=== PATIENT | female | born 1940 | race Caucasian/White ===

== ENCOUNTER 2017-11-13 10:05 | Inpatient (IN) | payer MEDICARE, OTHER ==
[2017-11-13] MEDS ORDERED: HYDROcodone/APAP 5-325MG 1 EACH TAB PO STA ×2 (10:30→11:46)
--- NOTE | 2017-11-13 10:38 | ED ---
Fall HPI - General Chief Complaint: Fall Stated Complaint: fall, ankle injury Time Seen by Provider: 11/13/17 10:17 Source: patient Mode of arrival: EMS - History of Present Illness Initial Comments: 77-year-old female presenting after a mechanical fall at home. Patient states she has been drinking a lot of milk lately causing her to use the bathroom frequently. States she got up and was not able to make it to the bathroom in time, slipped in her own urine and feces, and landed on her bottom with her knees touching and ankles out to the side. She had severe bilateral ankle pain at this time causing her to be unable to ambulate. She denies any head or neck injury. Patient is not on blood thinners. She denies any back pain or presyncopal symptoms. - Related Data Home Medications Medication Instructions Recorded Confirmed No Known Home Medications 12/31/13 11/13/17 Allergies Allergy/AdvReac Type Severity Reaction Status Date / Time No Known Allergies Allergy Verified 11/13/17 14:25 Review of Systems ROS Statement: Those systems with pertinent positive or pertinent negative responses have been documented in the HPI. Review of Systems Constitutional: Denies fever, chills Eyes: Denies change in vision, Denies pain Ears, nose, mouth, throat: Denies headaches, Denies sore throat Cardiovascular: Denies chest pain. Denies palpitations Respiratory: Denies shortness of breath, Denies cough Gastrointestinal: Denies abdominal pain. Denies nausea, vomiting, diarrhea. Genitourinary: Denies hematuria, Denies infections Musculoskeletal: Positive bilateral ankle pain and right ankle deformity. Integumentary: Denies rash Neurological: Denies headache, focal weakness, focal numbness Psychiatric: Denies anxiety, Denies depression Hematologic/Lymphatic: Denies easy bleeding or bruising ROS Other: All systems not noted in ROS Statement are negative. Past Medical History Additional Past Medical History / Comment(s): MACULAR DEGENERATION History of Any Multi-Drug Resistant Organisms: None Reported Additional Past Surgical History / Comment(s): CATARACT, Past Psychological History: No Psychological Hx Reported Smoking Status: Never smoker Past Alcohol Use History: None Reported Past Drug Use History: None Reported General Exam - General Exam Comments Initial Comments: General: Awake, alert, No acute Distress HENT: Normocephalic. Atraumatic Eyes: PERRL. EOMI. No scleral icterus. No injected conjunctiva Neck: Full ROM Chest/Lungs: Clear to auscultation bilaterally. No wheezing, rhonchi, or rales Cardiac: Regular rate, rhythm. No murmurs or rubs. 2+ DP pulses bilaterally Abdomen/GI: [Soft, nontender, nondistended. No rebound, guarding, or rigidity. Musculoskeletal: No midline cervical, thoracic, lumbar spine tenderness. No bilateral hip tenderness. Full range of motion of bilateral hips and knees without redness swelling or deformity. Erythematous and swollen right lateral malleolus with tenderness to palpation and limited range of motion in all planes. Left lateral malleoli ankle tenderness without erythema or deformity. L3 through S1 sensation intact bilaterally. Skin: Warm, dry, intact Neurologic: A/Ox3, no weakness, no sensory deficit, no abdnormal gait, no coordination deficit Limitations: no limitations Course Vital Signs 11/13/17 11/13/17 11/13/17 10:07 13:13 14:12 Temperature 98.1 F 99.4 F Pulse Rate 82 90 67 Respiratory 18 18 18 Rate Blood Pressure 184/81 136/32 112/64 O2 Sat by Pulse 98 94 L 93 L Oximetry Medical Decision Making - Medical Decision Making 77-year-old female presenting after mechanical fall. Initial exam the patient is awake, alert, no acute distress. VSS. Patient denies hitting her head or her neck. Nexus criteria negative. Patient does have some erythema and splint to the right ankle however at this time is not a large distracting injury. She was cleared from her c-collar. The patient is awake alert and denies any presyncopal symptoms. History consistent with a mechanical fall. She denies any history of ladder or bowel incontinence and attributes what happened this morning to the amount of milk she has been ingesting. Patient's family at bedside and states she is healthy and only sees a doctor one sick and is currently not taking any home medications. The patient is neurologically intact without history of head or neck trauma. No indication for CT imaging at this time. Patient found to have a mildly displaced distal fibula fracture. She is neurovascularly intact. She was splinted and remained neurovascularly intact. Patient has history of balance issues at home, is nearly blind from macular degeneration, is unable to ambulate with crutches or with a walker safely at home. Family at bedsides states they can not stay with her long-term to assist her. Patient is a fall risk. Her laboratory workup reveals a mild leukocytosis but her UA is negative, she has no cough to warrant CXR, and her abdomen is soft and nontender. No history of recent abx use to suggest her frequent stools are secondary to Cdiff. I spoke with Dr. Simmons who is agreeable to admission for inability to ambulate and PT/OT eval. - Lab Data Result diagrams: 11/13/17 12:51 11/13/17 12:51 Lab Results 11/13/17 11/13/17 11/13/17 Range/Units 12:51 12:51 12:51 WBC 12.5 H (3.8-10.6) k/uL RBC 4.69 (3.80-5.40) m/uL Hgb 13.8 (11.4-16.0) gm/dL Hct 42.3 (34.0-46.0) % MCV 90.2 (80.0-100.0) fL MCH 29.4 (25.0-35.0) pg MCHC 32.6 (31.0-37.0) g/dL RDW 13.2 (11.5-15.5) % Plt Count 213 (150-450) k/uL Neutrophils % 86 % Lymphocytes % 8 % Monocytes % 5 % Eosinophils % 0 % Basophils % 0 % Neutrophils # 10.7 H (1.3-7.7) k/uL Lymphocytes # 1.0 (1.0-4.8) k/uL Monocytes # 0.6 (0-1.0) k/uL Eosinophils # 0.1 (0-0.7) k/uL Basophils # 0.0 (0-0.2) k/uL Sodium 141 (137-145) mmol/L Potassium 4.6 (3.5-5.1) mmol/L Chloride 107 (98-107) mmol/L Carbon Dioxide 26 (22-30) mmol/L Anion Gap 8 mmol/L BUN 20 H (7-17) mg/dL Creatinine 0.64 (0.52-1.04) mg/dL Est GFR (CKD-EPI)AfAm >90 (>60 ml/min/1.73 sqM) Est GFR (CKD-EPI)NonAf 88 (>60 ml/min/1.73 sqM) Glucose 109 H (74-99) mg/dL Calcium 9.2 (8.4-10.2) mg/dL Urine Color Light Yellow Urine Appearance Clear (Clear) Urine pH 5.0 (5.0-8.0) Ur Specific [place] 1.009 (1.001-1.035) Urine Protein Negative (Negative) Urine Glucose (UA) Negative (Negative) Urine Ketones Negative (Negative) Urine Blood Negative (Negative) Urine Nitrite Negative (Negative) Urine Bilirubin Negative (Negative) Urine Urobilinogen <2.0 (<2.0) mg/dL Ur Leukocyte Esterase Negative (Negative) Disposition Clinical Impression: Fracture of distal fibula, Unable to ambulate, Risk for falls, Fall Disposition: ADMITTED IP TO THIS [facility] Condition: Good Decision Date: 11/13/17 Decision Time: 13:45
--- NOTE | 2017-11-13 11:26 | XR ---
EXAMINATION TYPE: XR Hip Bilateral and AP pelvis , 5 VIEWS DATE OF EXAM ORDERED: 11/13/2017 HISTORY: Pain. COMPARISON: None. FINDINGS: There is degenerative change in the lumbar spine. There is evidence of osteitis pubis. Oss eous structures about the pelvis are otherwise unremarkable. There is mild degenerative change of both hips. No fracture or dislocation is seen. IMPRESSION: 1. NO ACUTE OSSEOUS LESION. 2. DEGENERATIVE CHANGE.
--- NOTE | 2017-11-13 11:27 | XR ---
EXAMINATION TYPE: XR ankle complete bilateral , 6 VIEWS DATE OF EXAM ORDERED: 11/13/2017 HISTORY: Pain. COMPARISON: None. FINDINGS: There is a mildly displaced fracture the distal right fibula. No additional fracture is se en. There are bilateral, small plantar calcaneal spurs. IMPRESSION: MILDLY DISPLACED FRACTURE OF THE DISTAL RIGHT FIBULA. CODE A: INITIAL ENCOUNTER FOR CLOSED FRACTURE
[2017-11-13] MEDS ORDERED: IBUPROFEN 600 MG TAB PO STA (11:45)
[2017-11-13 13:28] LABS: Basophils % (A) 0 %; Eosinophils # (A) 0.1 k/uL (0-0.7); Eosinophils % (A) 0 %; HCT 42.3 % (34.0-46.0); HGB 13.8 gm/dL (11.4-16.0); Lymphocytes % (A) 8 %; MCH 29.4 pg (25.0-35.0); MCHC 32.6 g/dL (31.0-37.0); MCV 90.2 fL (80.0-100.0); Mean Platelet Volume 7.7; Monocytes # (A) 0.6 k/uL (0-1.0); Monocytes % (A) 5 %; Neutrophils # (A) 10.7 k/uL (1.3-7.7); Neutrophils % (A) 86 %; Platelet Count 213 k/uL (150-450); RBC 4.69 m/uL (3.80-5.40); RDW 13.2 % (11.5-15.5); WBC 12.5 k/uL (3.8-10.6)
[2017-11-13 13:34] LABS: Appearance,Urine Clear (Clear); Bilirubin,Urine Negative (Negative); Blood,Urine Negative (Negative); Color,Urine Light Yellow; Glucose,Urine (UA) Negative (Negative); Ketones,Urine Negative (Negative); Leukocyte Esterase,Urine Negative (Negative); Nitrite,Urine Negative (Negative); Protein,Urine Negative (Negative); Specific Gravity,Urine 1.009 (1.001-1.035); Urobilinogen,Urine <2.0 mg/dL (<2.0)
[2017-11-13 13:37] LABS: Anion Gap 8 mmol/L; Blood Urea Nitrogen 20 mg/dL (7-17); Calcium 9.2 mg/dL (8.4-10.2); Carbon Dioxide 26 mmol/L (22-30); Chloride 107 mmol/L (98-107); Glucose 109 mg/dL (74-99); Potassium 4.6 mmol/L (3.5-5.1); Sodium 141 mmol/L (137-145)
[2017-11-13] MEDS ORDERED: ACETAMINOPHEN TAB 325 MG TAB PO PRN (13:46)
[2017-11-13] MEDS ORDERED: ONDANSETRON 4 MG/2 ML VIAL IVP PRN (13:46)
[2017-11-13] MEDS ORDERED: NALOXONE 0.4 MG/ML 1 ML VIAL IV PRN (13:46)
[2017-11-13] MEDS ORDERED: IBUPROFEN 400 MG TAB PO PRN (13:46)
[2017-11-13] MEDS ORDERED: MORPHINE SULFATE 4 MG/ML SYRINGE IV PRN (13:46)
[2017-11-13] MEDS ORDERED: traMADol 50 MG TAB PO PRN (13:46)
[2017-11-13 15:36] VITALS: BMI 32.0
[2017-11-13] MEDS ORDERED: ALPRAZolam 0.25 MG TAB PO PRN (20:34)
--- NOTE | 2017-11-13 21:34 | HP ---
HISTORY AND PHYSICAL DATE OF SERVICE: 11/13/2017 CHIEF COMPLAINTS: Fall and as well as ankle pain. HISTORY OF PRESENT ILLNESS: This 77-year-old woman with a past medical history of multiple medical problems, including macular degeneration, history of tubal ligation, cataracts, bilateral blind and also was extremely hard of hearing. The patient being followed by Dr. Fernández in the outpatient setting. The patient apparently was drinking more milk recently which prompted her to go to the bathroom more frequently and the patient apparently slipped and fell and complaining of ankle pain. The patient came to [facility] emergency room and the patient is admitted for further evaluation and treatment. X-ray showed distal right fibular fracture. Patient admitted to the hospital for further evaluation and treatment. There is no history of fever, rigors, no headache, loss of consciousness, seizures. PAST MEDICAL HISTORY: History of disorder, macular degeneration, history of bilateral deafness, and blindness. MEDICATIONS: None. ALLERGIES: None. FAMILY HISTORY: No history of heart disease or strokes in family. SOCIAL HISTORY: No history of smoking. No history of alcohol. REVIEW OF SYSTEMS: ENT mentioned earlier. Cardiovascular: No angina or palpitations. Respiratory : No cough or hemoptysis. GI: No nausea or vomiting. : No dysuria or hematuria. Nervous system: No numbness or weakness. Allergy/Immunology: No asthma or hayfever. Musculoskeletal as mentioned earlier. Hematology/Oncology: No history of anemia. Endocrine: No history of diabetes or hypothyroidism. Constitutional: As mentioned earlier. Dermatology negative. Rheumatology as mentioned. Musculoskeletal as mentioned earlier. Psychiatric is negative. PHYSICAL EXAM: The patient is alert and oriented times three. Pulse 76, blood pressure 112/64 , respiration 18, temperature 99.4, pulse ox 93% on 2 L. HEENT is conjunctivae normal. Oral mucosa moist. Neck is no jugular venous distention. No carotid bruit. No lymph node enlargement. Cardiovascular S1-S2 muffled. No S3, no S4. RESPIRATORY: Breath sounds diminished in the bases. A few scattered rhonchi and no crackles. ABDOMEN: Soft, nontender. No mass palpable. Legs status post right ankle fracture. Nervous system: Higher functions as mentioned earlier. Moves all four extremities. No focal motor or sensory deficits. Lymphatics: No lymph nodes palpable in the neck, axillae or groin. Skin: No ulcer, rash or bleeding. Joints: As mentioned earlier. LAB STUDIES: WBC 5.5, otherwise glucose 109. ASSESSMENT: 1. Fall and right distal fibular fracture. 2. Gait dysfunction. 3. Increased WBC. 4. History of macular degeneration. 5. Bilateral blindness and as well as deafness. 6. Cataract. RECOMMENDATIONS AND DISCUSSION: In this 77-year-old woman who presented with multiple complex medical issues, we will monitor the patient closely. Continue the current medications, management and symptomatic treatment. Otherwise at this time I would recommend symptomatic treatment. DVT prophylaxis. Orthopedic evaluation. Otherwise, pain medications. Resume the home medications. Overall prognosis guarded because of multiple medical problems. Repeat labs will be ordered. Overall prognosis guarded because of multiple complex medical issues and further recommendations to follow. We will await Orthopedic surgery evaluation. I would also recommend PT/OT and as well as Social Work also to evaluate for the home situation as well. The patient might require rehab. CARRINGTON / PANTERA: [id number] / MTDD
[2017-11-13] MEDS: HEPARIN SODIUM,PORCINE 5,000 UNIT/ML 1 ML VIAL SQ SCH (21:42)
[2017-11-14 08:06] LABS: Anion Gap 6 mmol/L; Blood Urea Nitrogen 14 mg/dL (7-17); Calcium 8.9 mg/dL (8.4-10.2); Carbon Dioxide 27 mmol/L (22-30); Chloride 107 mmol/L (98-107); Glucose 108 mg/dL (74-99); Potassium 4.3 mmol/L (3.5-5.1); Sodium 140 mmol/L (137-145)
[2017-11-14] MEDS: HEPARIN SODIUM,PORCINE 5,000 UNIT/ML 1 ML VIAL SQ SCH ×2 (08:09→20:48)
[2017-11-14 08:14] LABS: Basophils % (A) 0 %; Eosinophils # (A) 0.2 k/uL (0-0.7); Eosinophils % (A) 2 %; HCT 45.1 % (34.0-46.0); HGB 14.2 gm/dL (11.4-16.0); Lymphocytes # (A) 1.5 k/uL (1.0-4.8); Lymphocytes % (A) 19 %; MCH 28.7 pg (25.0-35.0); MCHC 31.6 g/dL (31.0-37.0); MCV 90.9 fL (80.0-100.0); Mean Platelet Volume 7.8; Monocytes # (A) 0.4 k/uL (0-1.0); Monocytes % (A) 5 %; Neutrophils # (A) 5.8 k/uL (1.3-7.7); Neutrophils % (A) 73 %; Platelet Count 213 k/uL (150-450); RBC 4.96 m/uL (3.80-5.40); RDW 13.2 % (11.5-15.5)
[2017-11-14] MEDS: MULTIVITAMINS, THERA 1 EACH TAB PO SCH (11:30)
--- NOTE | 2017-11-14 11:58 | XR ---
EXAMINATION TYPE: XR chest 1V DATE OF EXAM: 11/14/2017 COMPARISON: 12/31/2013 HISTORY: 77-year-old female presurgical evaluation TECHNIQUE: Single frontal view of the chest is obtained. FINDINGS: Heart is mildly enlarged. Hazy lower lung densities may reflect trace effusions. Retrocardiac density is also present. Low lung volumes with crowded vascular markings. IMPRESSION: Limited portable view. Left base is underpenetrated and not well assessed. There are also hypoventila tory changes further limiting assessment. Based on this exam, left basilar disease or even mild CHF c annot be excluded. Recommend dedicated high quality PA and lateral views.
[2017-11-14 15:28] LABS: INR 1.1 (<1.2); Prothrombin Time 10.7 sec (9.0-12.0)
--- NOTE | 2017-11-14 15:46 | P.CNOR ---
History of Present Illness - [facility] Consult date: 11/14/17 Consult reason: fracture History of present illness: Patient is a 77-year-old female presented [facility] on 2017 after sustaining a fall at home. She states that she slipped on the floor and fell on her right ankle. Patient was unable to weight-bear, she was brought to [facility]. Upon arrival to the hospital, imaging test were done. Images demonstrated a right lateral malleolus ankle fracture. Patient was admitted to the hospital due to inability to ambulate with assistive devices. She was admitted under internal medicine, orthopedic team was consulted on this patient. Patient was evaluated today at bedside, her family was present. She is resting comfortably. She denies significant pain involving the right ankle. She denies any discomfort in the left lower extremity, bilateral upper extremity, new onset cervical, thoracic or lumbar pain. Review of Systems Constitutional: Reports as per [facility] Past Medical History Past Medical History: Eye Disorder Additional Past Medical History / Comment(s): MACULAR DEGENERATION History of Any Multi-Drug Resistant Organisms: None Reported Past Surgical History: Ear Surgery, Tubal Ligation Additional Past Surgical History / Comment(s): CATARACT, Past Anesthesia/Blood Transfusion Reactions: No Reported Reaction Past Psychological History: No Psychological Hx Reported Smoking Status: Never smoker Past Alcohol Use History: None Reported Past Drug Use History: None Reported Medications and Allergies Home Medications Medication Instructions Recorded Confirmed Type No Known Home Medications 12/31/13 11/13/17 History Allergies Allergy/AdvReac Type Severity Reaction Status Date / Time No Known Allergies Allergy Verified 11/13/17 14:25 Physical Examination Right lower extremity: There is a posterior splint with Matt wrap present on the right lower extremity. No obvious open lesions or sores present throughout the rest extremity. No obvious effusion present over the knee. She is able to wiggle all of her toes minimal difficulty. Her dorsal pedis pulses 2+. Her sensory exam to light touch is intact. Results - Labs Labs: Abnormal Lab Results - Last 24 Hours (Table) 11/14/17 Range/Units 07:31 Glucose 108 H (74-99) mg/dL H & H 11/13/17 11/14/17 Range/Units 12:51 07:31 Hgb 13.8 14.2 (11.4-16.0) gm/dL Hct 42.3 45.1 (34.0-46.0) % Coagulation 11/14/17 Range/Units 07:31 INR 1.1 (<1.2) Result Diagrams: 11/14/17 07:31 11/14/17 07:31 - Diagnostic results Ankle/Foot x-ray: report reviewed, image reviewed Assessment and Plan Plan: Imaging: Multiple views of the right ankle were obtained and reviewed. Images demonstrated a displaced lateral malleolus fracture involving the right ankle. Assessment: 1. Displaced right ankle lateral malleolus fracture 2. Status post fall from standing Plan: I was able to discuss the case, including with physical exam findings imaging studies my attending Dr. Mora. We will like to proceed with surgical fixation , more specifically an open reduction internal fixation procedure. I discussed the procedure, including postoperative care at length with the patient and the family at bedside today. She is in good understanding would like to proceed. Obtained consent Pain control Nonweightbearing right lower extremity nothing by mouth after midnight Medical clearances and recommendations GI and DVT prophylaxis, likely begin aspirin 325 mg twice a day after surgery Further recommendations to follow Time with Patient: Less than 30
[2017-11-14] MEDS ORDERED: IPRATROPIUM-ALBUTEROL 3 ML NEB INHALATION PRN (19:41)
--- NOTE | 2017-11-14 20:26 | PN ---
PROGRESS NOTE DATE OF SERVICE: 11/14/2017 This 77-year-old woman who was admitted with fall and distal fibular fracture is being closely monitored. Orthopedic Surgery has seen the patient and recommending surgical fixation and ORIF. No chest pain. No palpitations. No fever. REVIEW OF SYSTEMS: CARDIOVASCULAR: No angina. RESPIRATORY: No cough. GI: No nausea and diarrhea. : No dysuria. MUSCULOSKELETAL: As mentioned earlier. CURRENT MEDICATIONS: Reviewed and include: 1. Tylenol 650 q.6. 2. Ackerman 5 mg. 3. Xanax. 4. Heparin 5 b.i.d. 5. Motrin 200 mg. 6. Mobic. 7. Narcan. 8. Zofran. 9. Ultram. EXAM: Pulse is 90, blood pressure 130/70, respiration 17, temperature is 99.6, pulse ox 98% 2 L. HEENT: Conjunctivae normal. Oral mucosa moist. Neck is no jugular venous distention. No carotid bruit. No lymph node enlargement. CARDIOVASCULAR: S1, S2 muffled. No S3, no S4. RESPIRATORY: Breath sounds diminished in the bases. No rhonchi, no crackles. ABDOMEN: Soft, nontender. LEGS: Status post right ankle fracture. NERVOUS SYSTEM: No focal deficits. LABS: Chest x-ray done today showed possible atelectasis and infiltrate in the right side. ASSESSMENT: 1. Fall and right-sided distal fibular fracture and right displaced ankle malleolar fracture. 2. Gait dysfunction. 3. Fever, possible mild pneumonia. 4. Increased WBC. 5. History of macular degeneration. 6. Blindness as well as deafness. 7. Cataracts. RECOMMENDATIONS AND DISCUSSION: In this 77-year-old woman who presented with multiple complex medical issues, will monitor the patient closely. Continue the current management and symptomatic treatment. I would recommend a course of antibiotics and also recommend a course of bronchodilators as well as incentive spirometry. DVT prophylaxis. Orthopedic Surgery evaluation. Guarded prognosis because of multiple complex medical issues. Further recommendations to follow. See orders for details. Once again the prognosis guarded. Further recommendations to follow. See orders for details. Will also obtain cultures as well. MMODL / IJN: [id number] /
[2017-11-14] MEDS: PIPERACILLIN-TAZOBACTAM 3.375 GM in DEXTROSE/WATER 1 50ML.BAG IVPB SCH (20:48)
[2017-11-14] MEDS: IPRATROPIUM-ALBUTEROL 3 ML NEB INHALATION SCH (21:49)
--- NOTE | 2017-11-14 21:49 | PN ---
PROGRESS NOTE DATE OF SERVICE: 11/14/2017. ADDENDUM: The patient is medically cleared for surgery. Please refer to previous dictation orders. MMODL / IJN: [id number] /
[2017-11-15] MEDS: PIPERACILLIN-TAZOBACTAM 3.375 GM in DEXTROSE/WATER 1 50ML.BAG IVPB SCH ×3 (03:31→20:47)
[2017-11-15] MEDS: HEPARIN SODIUM,PORCINE 5,000 UNIT/ML 1 ML VIAL SQ SCH ×2 (07:25→20:47)
[2017-11-15] MEDS: IPRATROPIUM-ALBUTEROL 3 ML NEB INHALATION SCH ×3 (08:06→20:34)
[2017-11-15 09:49] LABS: Anion Gap 7 mmol/L; Blood Urea Nitrogen 14 mg/dL (7-17); Calcium 8.7 mg/dL (8.4-10.2); Carbon Dioxide 27 mmol/L (22-30); Chloride 107 mmol/L (98-107); Glucose 105 mg/dL (74-99); Potassium 4.2 mmol/L (3.5-5.1); Sodium 141 mmol/L (137-145)
[2017-11-15 11:04] LABS: Basophils % (A) 0 %; Eosinophils # (A) 0.3 k/uL (0-0.7); Eosinophils % (A) 4 %; HCT 41.6 % (34.0-46.0); HGB 13.3 gm/dL (11.4-16.0); Lymphocytes # (A) 1.2 k/uL (1.0-4.8); Lymphocytes % (A) 18 %; MCH 29.3 pg (25.0-35.0); MCV 91.6 fL (80.0-100.0); Mean Platelet Volume 7.6; Monocytes # (A) 0.4 k/uL (0-1.0); Monocytes % (A) 6 %; Neutrophils # (A) 4.9 k/uL (1.3-7.7); Neutrophils % (A) 70 %; Platelet Count 196 k/uL (150-450); RBC 4.54 m/uL (3.80-5.40); RDW 13.5 % (11.5-15.5); WBC 6.9 k/uL (3.8-10.6)
[2017-11-15] MEDS: MULTIVITAMINS, THERA 1 EACH TAB PO SCH (11:21)
[2017-11-15] MEDS ORDERED: hydrALAZINE HCL 20 MG/ML 1 ML VIAL IVP PRN (13:10)
--- NOTE | 2017-11-15 15:20 | PN ---
PROGRESS NOTE DATE OF SERVICE: 11/15/2017 This 77-year-old woman was admitted with right malleolar fracture slated to have surgery today, surgery. No chest pain. No palpitations. No fever. EXAM: Pulse is 88, blood pressure 160/85, respiration 18, temperature 97 degrees, pulse ox 94% on room air. HEENT: Conjunctivae normal. NECK: No jugular venous distention. CARDIOVASCULAR: S1, S2. RESPIRATORY: Breath sounds diminished in the bases. No rhonchi, no crackles. ABDOMEN: Soft, nontender. LEGS: No edema, no swelling. NERVOUS SYSTEM: Higher functions as mentioned earlier, moves all 4 limbs. No focal motor deficits. Otherwise, legs, status post right ankle fracture. LABS: At this time shows a CBC within normal limits. Glucose is 105. ASSESSMENT: 1. Fall and right-sided distal fibular fracture with right displaced ankle malleolar fracture. 2. Gait dysfunction. 3. Fever possible mild pneumonia. 4. Increased WBC. 5. History of macular degeneration. 6. Blindness as well as deafness. 7. Cataracts. RECOMMENDATIONS AND DISCUSSION: I recommend to continue current management and symptomatic treatment. Otherwise at this time I would recommend follow closely with Orthopedic Surgery. Otherwise the white count is normal. Guarded prognosis. Further recommendations to follow. MMODL / IJN: [id number] / MTDD
[2017-11-15] MEDS ORDERED: LACTATED RINGERS 1,000 ML IV ONE (16:04)
[2017-11-15] MEDS ORDERED: DEXAMETHASONE SOD PHOSPHATE 4 MG/ML 1 ML VIAL IVP ONE (16:13)
[2017-11-15] MEDS ORDERED: LIDOCAINE 1% INJ 10MG/ML (20 ML MDV) ONE (16:45)
[2017-11-15] MEDS ORDERED: GLYCOPYRROLATE 0.2 MG/ML 2 ML VIAL ONE (16:45)
[2017-11-15] MEDS ORDERED: MIDAZOLAM 2 MG/2 ML VIAL ONE (16:45)
[2017-11-15] MEDS ORDERED: fentaNYL (PF) 50 MCG/ML 2 ML AMP ONE (16:45)
[2017-11-15] MEDS ORDERED: ROCURONIUM BROMIDE 10 MG/ML 10 ML VIAL IV ONE (16:45)
[2017-11-15] MEDS ORDERED: PROPOFOL 10 MG/ML 20 ML VIAL IV ONE (16:45)
[2017-11-15] MEDS ORDERED: ePHEDrine SULFATE/0.9% NACL/PF 50 MG/5 ML SYRINGE IV ONE (16:45)
[2017-11-15] MEDS ORDERED: NEOSTIGMINE 1 MG/ML 10 ML VIAL ONE (16:45)
[2017-11-15] MEDS ORDERED: ceFAZolin 1,000 MG VIAL IVPB ONE ×2 (17:10→17:20)
[2017-11-15] MEDS ORDERED: ceFAZolin 1,000 MG in SODIUM CHLORIDE 0.9% 1,000 ML IRRIGATION ONE (17:26)
[2017-11-15] MEDS ORDERED: HYDROcodone/APAP 5-325MG 1 EACH TAB PO PRN (18:01)
--- NOTE | 2017-11-15 18:03 | P.OP ---
Date of Procedure: 11/15/17 Preoperative Diagnosis: Displaced right lateral malleolar ankle fracture Postoperative Diagnosis: Same Procedure(s) Performed: Open reduction and internal fixation right lateral malleolar ankle fracture Implants: Lara 6-hole one third tubular plate Anesthesia: JUNIE Surgeon: Yury Mora Finish Mixer #1: Hasmukh Julio Estimated Blood Loss (ml): 5 Pathology: none sent Condition: stable Disposition: PACU Indications for Procedure: The patient's a 77-year-old female who presents after falling injuring her right ankle. Upon evaluation she was noted of evidence of a displaced right lateral ankle fracture. A discussion of the risks and benefits of operative intervention versus conservative measures was made with the patient and her family. She opted to proceed with surgery. Operative risks to include infection, neurovascular injury, development of blood clots, possible development of nonunion/malunion, and possible need for subsequent procedures was discussed. Informed consent was obtained. Operative Findings: As below Description of Procedure: The patient was brought to the operating room, and after induction of general anesthesia the right lower extremity was prepped and draped in normal fashion. The tourniquet was inflated to 270 mmHg. An 8 cm incision was then made along the posterior lateral subcutaneous border of the fibula. The skin was incised sharply. Subcu change tissues were divided bluntly. The fracture site was identified and cleaned of clot and debris. Fracture was then reduced with a reduction clamp. A lag screw was placed posterior to anterior. This is done with the aid of fluoroscopy. A lateral neutralization plate was placed utilizing a 6-hole one third tubular plate that was appropriately molded. 3.5 mm cortical screws the appropriate length were placed proximally and 4.0 mm cancellus screws in the distal 2 screw holes. Final fluoroscopic views to include AP mortise and lateral view showed adequate reduction of the fracture and placement of the implant. The mortise appeared to be intact. The syndesmosis was deemed to be stable. The wound is irrigated with normal saline. The subcu change tissues were reapproximated with interrupted 2-0 Vicryl sutures. The skin was reapproximated with 3-0 subcuticular Prolene suture. Steri-Strips were applied. A sterile dressing was applied. Tourniquet was deflated less than 45 minutes total tourniquet time. A bulky splint was placed. The patient was awoken from general anesthesia and transferred to recovery room in fair condition. Blood loss estimated 5 mL. No complications were incurred. Sponge and needle counts were correct at the end of the case.
[2017-11-15] MEDS ORDERED: LABETALOL 5 MG/ML VIAL MDV IVP ONE (18:30)
[2017-11-15] MEDS ORDERED: HYDROmorphone 1 MG/ML 1 ML SYRINGE IVP ONE ×2 (18:45→18:54)
[2017-11-15] MEDS ORDERED: MORPHINE ORAL SOLN 10 MG/5 ML CUP PO PRN (20:44)
[2017-11-16] MEDS: PIPERACILLIN-TAZOBACTAM 3.375 GM in DEXTROSE/WATER 1 50ML.BAG IVPB SCH ×3 (04:27→20:30)
[2017-11-16] MEDS: HEPARIN SODIUM,PORCINE 5,000 UNIT/ML 1 ML VIAL SQ SCH ×2 (08:03→21:43)
--- NOTE | 2017-11-16 08:08 | FL ---
Fluoroscopy INDICATION: Pain FINDINGS: Fluoroscopy time: 16 seconds. Images obtained: 3. IMPRESSIONS: 1. Documentation of fluoroscopy.
[2017-11-16] MEDS: IPRATROPIUM-ALBUTEROL 3 ML NEB INHALATION SCH ×3 (08:22→19:55)
[2017-11-16 09:37] LABS: Basophils % (A) 0 %; Eosinophils % (A) 0 %; HCT 45.2 % (34.0-46.0); HGB 13.8 gm/dL (11.4-16.0); Lymphocytes % (A) 7 %; MCH 28.1 pg (25.0-35.0); MCHC 30.5 g/dL (31.0-37.0); MCV 92.2 fL (80.0-100.0); Monocytes # (A) 0.3 k/uL (0-1.0); Monocytes % (A) 2 %; Neutrophils # (A) 12.8 k/uL (1.3-7.7); Neutrophils % (A) 90 %; Platelet Count 260 k/uL (150-450); RDW 13.3 % (11.5-15.5); WBC 14.2 k/uL (3.8-10.6)
[2017-11-16 10:00] LABS: Anion Gap 11 mmol/L; Blood Urea Nitrogen 16 mg/dL (7-17); Calcium 9.3 mg/dL (8.4-10.2); Carbon Dioxide 24 mmol/L (22-30); Chloride 106 mmol/L (98-107); Glucose 185 mg/dL (74-99); Potassium 4.6 mmol/L (3.5-5.1); Sodium 141 mmol/L (137-145)
[2017-11-16] MEDS: MULTIVITAMINS, THERA 1 EACH TAB PO SCH (11:11)
--- NOTE | 2017-11-16 11:22 | XR ---
EXAMINATION TYPE: XR chest 1V portable DATE OF EXAM: 11/16/2017 COMPARISON: 11/14/2017 INDICATION: Pneumonia TECHNIQUE: Single frontal view of the chest is obtained. FINDINGS: The heart size is enlarged. The pulmonary vasculature is normal. The lungs are clear. IMPRESSION: 1. No focal consolidation identified.
[2017-11-16] MEDS: HYDROcodone/APAP 5-325MG 1 EACH TAB PO PRN (12:02)
--- NOTE | 2017-11-16 12:24 | P.PN ---
Subjective Progress Note Date: 11/16/17 Principal diagnosis: Status post ORIF right lateral malleolus fracture Patient seen today resting in her hospital bed, she appears comfortable. Pain is controlled at this time. She denies any chest pain or shortness of breath. Objective - Vital Signs Vital signs: Vital Signs Temp 98.3 F 11/16/17 06:35 Pulse 92 11/16/17 08:33 Resp 16 11/16/17 06:35 BP 134/67 11/16/17 06:35 Pulse Ox 92 L 11/16/17 06:35 Intake & Output 11/15/17 11/16/17 11/16/17 18:59 06:59 18:59 Intake Total 701 Output Total 5 Balance 696 Intake: IV 701 Output: Estimated Blood Loss 5 Other: Voiding Method Incontinent # Voids 1 2 # Bowel Movements 0 - Exam Right lower extremity: Postop cast is in good position and condition. She is able to wiggle the toes and little difficulty. A cap refills less than 3 seconds. - Labs CBC & Chem 7: 11/16/17 08:50 11/16/17 08:50 Labs: Abnormal Lab Results - Last 24 Hours (Table) 11/16/17 11/16/17 Range/Units 08:50 08:50 WBC 14.2 H (3.8-10.6) k/uL MCHC 30.5 L (31.0-37.0) g/dL Neutrophils # 12.8 H (1.3-7.7) k/uL Glucose 185 H (74-99) mg/dL Microbiology - Last 24 Hours (Table) 11/14/17 20:14 Blood Culture - Preliminary Blood No Growth after 24 hours Assessment and Plan Plan: Assessment: Postoperative day 1 status post ORIF right ankle lateral malleolus fracture Plan: Pain control, continue supportive oral medication Nonweightbearing right lower extremity, utilizes walker or crutches GI and DVT prophylaxis Medical recommendations Discharge planning: Patient is cleared for discharge to rehab, this will likely happened on 11/17/2017 Time with Patient: Less than 30
--- NOTE | 2017-11-16 14:26 | PN ---
PROGRESS NOTE DATE OF SERVICE: 11/16/2017 This 77-year-old woman was admitted after fracture of the right ankle, underwent ORIF of the right lateral malleolar ankle fracture. No chest pain. No palpitations. No fever. ECF rehab is being contemplated. PHYSICAL EXAM: On exam, alert and oriented x2. The pulse is 98, blood pressure 134/60, respirations 16, temperature 98.2, pulse ox 98%. HEENT: Hard of hearing and also blind also. CARDIOVASCULAR: S1, S2. RESPIRATORY: Breath sounds diminished in the bases. No rhonchi no crackles. ABDOMEN: Soft, nontender. LEGS: Status post ankle ORIF on the right. NERVOUS SYSTEM: No focal deficit. LABS: WBC 14.2. Chest x-ray repeated shows no focal consolidation. ASSESSMENT: 1. Right lateral malleolar ankle fracture status post open reduction and internal fixation. 2. Fall and gait dysfunction. 3. Fever, possible mild pneumonia, improving. 4. Increased WBC. 5. History of macular degeneration. 6. Blindness as well as deafness. 7. Cataracts. RECOMMENDATIONS AND DISCUSSION: I recommend to continue current medications, continue to monitor. Symptomatic treatment. Otherwise at this time, will continue the antibiotics and increase ambulation. PT, OT evaluation. Follow with Orthopedic Surgery. Once orthopedics cleared the patient might be a candidate for rehab at this time. Prognosis guarded. Further recommendations to follow. [place] / TOMN: [id number] /
[2017-11-17] MEDS ORDERED: ALPRAZolam 0.25 MG TAB ONE
[2017-11-17] MEDS: IPRATROPIUM-ALBUTEROL 3 ML NEB INHALATION SCH ×2 (07:39→13:30)
[2017-11-17 07:58] LABS: Basophils % (A) 0 %; Eosinophils # (A) 0.3 k/uL (0-0.7); Eosinophils % (A) 3 %; HCT 38.6 % (34.0-46.0); HGB 12.3 gm/dL (11.4-16.0); Lymphocytes # (A) 1.6 k/uL (1.0-4.8); Lymphocytes % (A) 20 %; MCH 29.3 pg (25.0-35.0); MCHC 31.8 g/dL (31.0-37.0); Mean Platelet Volume 7.1; Monocytes # (A) 0.4 k/uL (0-1.0); Monocytes % (A) 5 %; Neutrophils # (A) 5.8 k/uL (1.3-7.7); Neutrophils % (A) 71 %; Platelet Count 211 k/uL (150-450); RDW 13.6 % (11.5-15.5); WBC 8.3 k/uL (3.8-10.6)
[2017-11-17] MEDS: HEPARIN SODIUM,PORCINE 5,000 UNIT/ML 1 ML VIAL SQ SCH (08:00)
[2017-11-17] MEDS: PIPERACILLIN-TAZOBACTAM 3.375 GM in DEXTROSE/WATER 1 50ML.BAG IVPB SCH ×2 (08:00→10:42)
[2017-11-17 09:25] LABS: Calcium 8.6 mg/dL (8.4-10.2); Potassium 4.5 mmol/L (3.5-5.1)
[2017-11-17] MEDS: HYDROcodone/APAP 5-325MG 1 EACH TAB PO PRN (10:41)
[2017-11-17] MEDS: MULTIVITAMINS, THERA 1 EACH TAB PO SCH (10:52)
--- NOTE | 2017-11-17 12:50 | P.PN ---
Subjective Progress Note Date: 11/17/17 Principal diagnosis: Status post ORIF right lateral malleolus fracture Patient seen today sleeping in her bed. She had an episode last night, she became confused and tried to get out of bed. She did have a fall. Objective - Vital Signs Vital signs: Vital Signs Temp 98.3 F 11/17/17 07:30 Pulse 88 11/17/17 07:53 Resp 16 11/17/17 07:30 BP 116/62 11/17/17 07:30 Pulse Ox 90 L 11/17/17 07:42 Intake & Output 11/16/17 11/17/17 11/17/17 18:59 06:59 18:59 Other: Voiding Method Incontinent Incontinent # Voids 2 2 2 - Exam Right lower extremity: Postop cast is in good position and condition. She is able to wiggle the toes and little difficulty. A cap refills less than 3 seconds. - Labs CBC & Chem 7: 11/17/17 07:31 11/17/17 07:31 Labs: Abnormal Lab Results - Last 24 Hours (Table) 11/17/17 Range/Units 07:31 BUN 19 H (7-17) mg/dL Microbiology - Last 24 Hours (Table) 11/14/17 20:14 Blood Culture - Preliminary Blood No Growth after 48 hours Assessment and Plan Plan: Assessment: Postoperative day #2 status post ORIF right ankle lateral malleolus fracture Plan: Pain control, hold narcotics Nonweightbearing right lower extremity, utilizes walker or crutches GI and DVT prophylaxis Medical recommendations PT evaluation Discharge planning: Recommend additional stay tonight, hopeful discharge to rehab tomorrow Time with Patient: Less than 30
--- NOTE | 2017-11-17 15:06 | XR ---
EXAMINATION TYPE: XR ankle complete RT DATE OF EXAM: 11/17/2017 COMPARISON: NONE HISTORY: Pain TECHNIQUE: Frontal, lateral images of the right ankle are obtained. COMPARISON: None. FINDINGS: Plate fixation of the distal fibula with plate and screws being intact. There is no acute fracture/dislocation evident. The joint spaces appear within normal limits. Mild soft tissue swellin g noted. IMPRESSION: There is no acute fracture or dislocation seen.
--- NOTE | 2017-11-17 15:32 | P.DS ---
Providers Date of admission: 11/14/17 11:14 Attending physician: Yuri Simmons MD Consults: 11/13/17 13:52 Consult Physician Routine Consulting Provider: Yury Mora Consult Reason/Comments: distal fibula fracture Do you want consulting provider notified?: Yes Primary care physician: Pradeep Dempsey [facility] Course: Final diagnosis 1. Right lateral malleolus ankle fracture status post ORIF Fall and gait dysfunction Fever possibly mild pneumonia improving Increased WBC History macular degeneration Blindness as well as deafness. Cataracts History of present illness this 77-year-old woman with a past history multiple medical problems admitted with a right lateral ankle fracture. Orthopedics evaluated the patient. Patient underwent ORIF. Patient improved significantly. Patient be discharged in a stable condition with guarded prognosis [facility] and Dr. Rodriguez at this time. Total time taken 35 minutes. On exam vitals are stable. Cardio S1 and S2 normal. Respirator system. Clear to auscultation. Abdomen soft nontender. Right ankle status post ORIF Patient Condition at Discharge: Good Plan - Discharge Summary New Discharge Prescriptions: New Acetaminophen Tab [Tylenol] 650 mg PO Q6HR PRN tab PRN Reason: Mild Pain Or Fever > 100.5 Amoxic-Pot Clav 875-125Mg [Augmentin 875-125] 1 tab PO Q12HR #8 tablet Heparin Sodium,Porcine [Heparin Sodium] 5,000 unit SQ Q12HR vial Ibuprofen [Motrin] 400 mg PO Q6HR PRN tab PRN Reason: Mild Pain Or Fever > 100.5 Ipratropium-Albuterol Nebulize [Duoneb 0.5 mg-3 mg/3 ml Soln] 3 ml INHALATION RT-TID PRN ampul.neb PRN Reason: Shortness Of Breath Or Wheezing Multivitamins, Thera [Multivitamin (formulary)] 1 each PO DAILY@1200 tab Pantoprazole Sodium [Protonix] 40 mg PO DAILY #30 tablet.dr Discharge Medication List Acetaminophen Tab [Tylenol] 650 mg PO Q6HR PRN tab 11/17/17 [Rx] Amoxic-Pot Clav 875-125Mg [Augmentin 875-125] 1 tab PO Q12HR #8 tablet 11/17/17 [Rx] Heparin Sodium,Porcine [Heparin Sodium] 5,000 unit SQ Q12HR vial 11/17/17 [Rx] Ibuprofen [Motrin] 400 mg PO Q6HR PRN tab 11/17/17 [Rx] Ipratropium-Albuterol Nebulize [Duoneb 0.5 mg-3 mg/3 ml Soln] 3 ml INHALATION RT -TID PRN ampul.neb 11/17/17 [Rx] Multivitamins, Thera [Multivitamin (formulary)] 1 each PO DAILY@1200 tab [Rx] Pantoprazole Sodium [Protonix] 40 mg PO DAILY #30 tablet. 11/17/17 [Rx] Follow up Appointment(s)/Referral(s): Binh Fernández MD [Primary Care Provider] - 1-2 days Activity/Diet/Wound Care/Special Instructions: Diet cardiac Activity as tolerated follow-up with the orthopedic surgery is advised Follow-up with Dr. Rodriguez in ECF
[2017-11-17 15:55] VITALS: BP 110/70; PULSE 90; RESP 18; TEMP 98.4
== END 2017-11-17 16:40 | DRG 492 ==
LOC: EC 10:05 → 4MS4W 13:49 → OBSVTOIN 11-14 11:14
PROVIDERS: ADMIT Internal Medicine; ATTEND Internal Medicine
PROC: 0QSJ04Z Reposition Right Fibula with Internal Fixation Device, Open Approach (ICD-10-PCS; principal; 2017-11-15 16:30)
DX: S82.61XA Displaced fracture of lateral malleolus of right fibula, initial encounter for closed fracture (principal); J18.9 Pneumonia, unspecified organism; W01.0XXA Fall on same level from slipping, tripping and stumbling without subsequent striking against object, initial encounter; Y92.009 Unspecified place in unspecified non-institutional (private) residence as the place of occurrence of the external cause; Z98.51 Tubal ligation status; Z91.81 History of falling; D72.829 Elevated white blood cell count, unspecified; H35.30 Unspecified macular degeneration; H91.93 Unspecified hearing loss, bilateral; Z98.42 Cataract extraction status, left eye; Z98.41 Cataract extraction status, right eye
CPT/HCPCS: 36415; 71045; 73521; 80048; 81003; 85025; 85610; 87040; 94640; 94760; 99285

== ENCOUNTER 2018-11-28 00:50 | Emergency (ER) | payer MEDICARE, OTHER ==
[2018-11-28 01:19] VITALS: RESP 20
--- NOTE | 2018-11-28 01:42 | ED ---
General Adult HPI - General Chief complaint: Fall Stated complaint: Fall-knee pain Time Seen by Provider: 11/28/18 01:06 Source: patient, EMS Mode of arrival: EMS Limitations: no limitations - History of Present Illness Initial comments: Dictation was produced using [employer] dictation software. please excuse any grammatical, word or spelling errors. Chief Complaint: 78-year-old female presents with bilateral knee pain after falling out of bed. History of Present Illness: 78-year-old female she actually rolled out of bed while she was sleeping. She states she fell forward. She reports landing on her knees. Patient has similar episode like this in the past for she ended up injuring her ankle. She is brought in by family member was concerned that maybe she had injured her knee significantly. Patient complains of some mild knee pain with movement. She still however ambulatory. Patient has no other complaints. Denies any facial trauma. She is not on any blood thinners. Patient has no other complaints at this time. The ROS documented in this emergency department record has been reviewed and confirmed by me. Those systems with pertinent positive or negative responses have been documented in the HPI. All other systems are other negative and/or noncontributory. PHYSICAL EXAM: General Impression: Alert and oriented x3, not in acute distress HEENT: Normocephalic atraumatic, extra-ocular movements intact, pupils equal and reactive to light bilaterally, mucous membranes moist. Cardiovascular: Heart regular rate and rhythm, S1&S2 audible, no murmurs, rubs or gallops Chest: Lungs clear to auscultation bilaterally, no rhonchi, no wheeze, no rales Abdomen: Bowel sounds present, abdomen soft, non-tender, non-distended, no organomegaly Musculoskeletal: Pulses present and equal in all extremities, no peripheral edema, mild tenderness to palpation at the bilateral anterior knees, mild pain with flexion and extension, slight erythema to bilateral anterior knees. Motor: no focal deficits noted Neurological: CN II-XII grossly intact, no focal motor or sensory deficits noted Skin: Intact with no visualized rashes Psych: Normal affect and mood ED course: 78 yo Female presents with bilateral knee pain. All signs upon arrival are within acceptable limits. Patient is well-appearing at bedside. Rest of physical examination is unremarkable.X-rays are unremarkable. Patient could for discharge. - Related Data Previous Rx's Medication Instructions Recorded Acetaminophen Tab [Tylenol] 650 mg PO Q6HR PRN tab 11/17/17 Amoxic-Pot Clav 875-125Mg 1 tab PO Q12HR #8 tablet 11/17/17 [Augmentin 875-125] Heparin Sodium,Porcine [Heparin 5,000 unit SQ Q12HR vial 11/17/17 Sodium] Ibuprofen [Motrin] 400 mg PO Q6HR PRN tab 11/17/17 Ipratropium-Albuterol Nebulize 3 ml INHALATION RT-TID PRN 11/17/17 [Duoneb 0.5 mg-3 mg/3 ml Soln] ampul.neb Multivitamins, Thera [Multivitamin 1 each PO DAILY@1200 tab 11/17/17 (formulary)] Pantoprazole Sodium [Protonix] 40 mg PO DAILY #30 tablet. 11/17/17 Allergies Allergy/AdvReac Type Severity Reaction Status Date / Time No Known Allergies Allergy Verified 11/13/17 14:25 Review of Systems ROS Statement: Those systems with pertinent positive or pertinent negative responses have been documented in the HPI. ROS Other: All systems not noted in ROS Statement are negative. Past Medical History Past Medical History: Eye Disorder Additional Past Medical History / Comment(s): MACULAR DEGENERATION History of Any Multi-Drug Resistant Organisms: None Reported Past Surgical History: Ear Surgery, Tubal Ligation Additional Past Surgical History / Comment(s): CATARACT, Past Anesthesia/Blood Transfusion Reactions: No Reported Reaction Past Psychological History: No Psychological Hx Reported Smoking Status: Never smoker Past Alcohol Use History: None Reported Past Drug Use History: None Reported General Exam Limitations: no limitations Course Vital Signs 11/28/18 00:55 Temperature 97.9 F Pulse Rate 98 Respiratory 20 Rate Blood Pressure 153/96 O2 Sat by Pulse 97 Oximetry Disposition Clinical Impression: Knee contusion Disposition: HOME SELF-CARE Condition: Good Instructions (If sedation given, give patient instructions): Fall Prevention for Older Adults (ED) Is patient prescribed a controlled substance at d/c from ED?: No Referrals: Yury Mora MD [Primary Care Provider] - 1-2 days Time of Disposition: 02:39
--- NOTE | 2018-11-28 02:18 | XR ---
EXAM: XR Left Knee, 3 views XR Right Knee, 3 views CLINICAL HISTORY: Pain TECHNIQUE: Three views of the bilateral knees. COMPARISON: No relevant prior studies available. FINDINGS: Bones/joints: Unremarkable. No acute fracture. No dislocation. Soft tissues: Unremarkable. IMPRESSION: Normal bilateral knee x-rays.
[2018-11-28 03:08] VITALS: BP 148/89; PULSE 92; TEMP 98.4
== END 2018-11-28 03:08 | disposition home or self-care (01) ==
LOC: EC 00:50
DX: S80.01XA Contusion of right knee, initial encounter (principal); S80.02XA Contusion of left knee, initial encounter; W06.XXXA Fall from bed, initial encounter; Y92.009 Unspecified place in unspecified non-institutional (private) residence as the place of occurrence of the external cause
CPT/HCPCS: 99283

== ENCOUNTER 2021-11-25 11:07 | Emergency (ER) | payer MEDICARE, OTHER ==
[2021-11-25 11:12] VITALS: RESP 18
--- NOTE | 2021-11-25 12:37 | XR ---
EXAMINATION TYPE: XR knee complete LT DATE OF EXAM: 11/25/2021 COMPARISON: 11/28/2018 HISTORY: 81-year-old female pain after falling TECHNIQUE: AP, oblique, and lateral views FINDINGS: There is moderate narrowing of cartilage and joint space within the medial compartment. Degenerative spurring in the medial compartment. No sizable joint effusion. No acute fracture, subluxation, disloc ation. Limited assessment of the quadriceps tendon due to obliquity on the lateral view. IMPRESSION: Moderate medial compartmental osteoarthrosis. Excessive obliquity on the lateral view limits evaluati on of knee joint effusion and the quadriceps tendon. No acute osseous abnormality seen.
--- NOTE | 2021-11-25 13:00 | ED ---
Fall HPI - General Chief Complaint: Fall Stated Complaint: Fall Time Seen by Provider: 11/25/21 11:09 Source: patient, EMS, RN notes reviewed Mode of arrival: EMS Limitations: no limitations - History of Present Illness Initial Comments: 81-year-old female presents emergency Department chief complaint left knee pain. Patient states she lost balance on her left knee. Patient states is very sore. Denies any head injury no loss conscious. Patient evaluation return her left knee pain. Patient denies any paresthesias no other associated complaints - Related Data Previous Rx's Medication Instructions Recorded Acetaminophen Tab [Tylenol] 650 mg PO Q6HR PRN tab 11/17/17 Amoxic-Pot Clav 875-125Mg 1 tab PO Q12HR #8 tablet 11/17/17 [Augmentin 875-125] Heparin Sodium,Porcine [Heparin 5,000 unit SQ Q12HR vial 11/17/17 Sodium] Ibuprofen [Motrin] 400 mg PO Q6HR PRN tab 11/17/17 Ipratropium-Albuterol Nebulize 3 ml INHALATION RT-TID PRN 11/17/17 [Duoneb 0.5 mg-3 mg/3 ml Soln] ampul.neb Multivitamins, Thera [Multivitamin 1 each PO DAILY@1200 tab 11/17/17 (formulary)] Pantoprazole Sodium [Protonix] 40 mg PO DAILY #30 tablet. 11/17/17 Allergies Allergy/AdvReac Type Severity Reaction Status Date / Time No Known Allergies Allergy Verified 11/13/17 14:25 Review of Systems ROS Statement: Those systems with pertinent positive or pertinent negative responses have been documented in the HPI. ROS Other: All systems not noted in ROS Statement are negative. Past Medical History Past Medical History: Eye Disorder Additional Past Medical History / Comment(s): MACULAR DEGENERATION History of Any Multi-Drug Resistant Organisms: None Reported Past Surgical History: Ear Surgery, Tubal Ligation Additional Past Surgical History / Comment(s): CATARACT, Past Anesthesia/Blood Transfusion Reactions: No Reported Reaction Past Psychological History: No Psychological Hx Reported Past Alcohol Use History: None Reported Past Drug Use History: None Reported General Exam Limitations: no limitations General appearance: alert, in no apparent distress Head exam: Present: atraumatic, normocephalic, normal inspection Eye exam: Present: normal appearance, PERRL, EOMI. Absent: scleral icterus, conjunctival injection, periorbital swelling Neck exam: Present: normal inspection, full ROM. Absent: tenderness, meningismus, lymphadenopathy Respiratory exam: Present: normal lung sounds bilaterally. Absent: respiratory distress, wheezes, rales, rhonchi, stridor Cardiovascular Exam: Present: regular rate, normal rhythm, normal heart sounds. Absent: systolic murmur, diastolic murmur, rubs, gallop, clicks Extremities exam: Present: other (Left knee small abrasion, mild swelling, neurovascular intact full range of motion no tenderness proximal or distal.) Neurological exam: Present: alert, reflexes normal. Absent: motor sensory deficit Skin exam: Present: warm, dry, intact, normal color. Absent: rash Course Vital Signs 11/25/21 11:08 Pulse Rate 79 Respiratory 18 Rate Blood Pressure 137/84 O2 Sat by Pulse 92 L Oximetry Medical Decision Making - Medical Decision Making X-ray shows degenerative changes, mild joint effusion patient will be discharged in stable condition return parameters discussed. Disposition Clinical Impression: Fall, Left knee pain Disposition: HOME SELF-CARE Condition: Stable Instructions (If sedation given, give patient instructions): Knee Pain (ED) Additional Instructions: Please return to the Emergency Department if symptoms worsen or any other concerns. Is patient prescribed a controlled substance at d/c from ED?: No Referrals: None,Stated [Primary Care Provider] - 1-2 days Time of Disposition: 13:00
[2021-11-25 13:26] VITALS: BP 140/89; PULSE 77
== END 2021-11-25 13:22 | disposition home or self-care (01) ==
LOC: EC 11:07
DX: M25.562 Pain in left knee (principal); W19.XXXA Unspecified fall, initial encounter
CPT/HCPCS: 99283

== ENCOUNTER 2022-03-07 19:26 | Emergency (ER) | payer MEDICARE, OTHER ==
[2022-03-07 19:38] VITALS: BP 147/77; PULSE 72; RESP 16; TEMP 97.8
[2022-03-07] MEDS ORDERED: HYDROcodone/APAP 5-325MG 1 EACH TAB PO STA (20:07)
[2022-03-07] MEDS ORDERED: predniSONE 50 MG TAB PO STA (20:07)
--- NOTE | 2022-03-07 20:47 | XR ---
EXAMINATION TYPE: XR lumbar spine 2 or 3V DATE OF EXAM: 03/07/2022 COMPARISON: NONE HISTORY: Fall. Pain TECHNIQUE: 3 views FINDINGS: The lumbar vertebrae have normal alignment. Posterior elements are intact. There is narrowi ng of disc spaces throughout the lumbar spine.. There is multilevel vacuum disc. No compression fract ure. Sacroiliac joints are intact IMPRESSION: Multilevel spondylotic changes. No fracture seen.
--- NOTE | 2022-03-07 21:30 | ED ---
General Adult HPI - General Chief complaint: Extremity Problem,Nontraumatic Stated complaint: RT leg pain Time Seen by Provider: 03/07/22 19:58 Source: patient, EMS, RN notes reviewed Mode of arrival: EMS Limitations: no limitations - History of Present Illness Initial comments: 81-year-old female presents to the emergency Department via EMS with complaints of low back pain radiating down her right leg. Describes pain as a burning discomfort. States the pain has been ongoing for the past several days but has worsened today. States she had been taking aspirin but ran out of it. Has not been seen for this complaint and has not been to a doctor in a very long time. States the pain became so severe today that she fell onto her bed. Denies any recent trauma or falls. No loss of bowel or bladder control. No saddle anesthesia. Denies foot drop. - Related Data Previous Rx's Medication Instructions Recorded Acetaminophen Tab [Tylenol] 650 mg PO Q6HR PRN tab 11/17/17 Amoxic-Pot Clav 875-125Mg 1 tab PO Q12HR #8 tablet 11/17/17 [Augmentin 875-125] Heparin Sodium,Porcine [Heparin 5,000 unit SQ Q12HR vial 11/17/17 Sodium] Ibuprofen [Motrin] 400 mg PO Q6HR PRN tab 11/17/17 Ipratropium-Albuterol Nebulize 3 ml INHALATION RT-TID PRN 11/17/17 [Duoneb 0.5 mg-3 mg/3 ml Soln] ampul.neb Multivitamins, Thera [Multivitamin 1 each PO DAILY@1200 tab 11/17/17 (formulary)] Pantoprazole Sodium [Protonix] 40 mg PO DAILY #30 tablet. 11/17/17 Ibuprofen [Motrin] 600 mg PO Q8HR PRN #20 tab 03/07/22 predniSONE 50 mg PO DAILY #5 tab 03/07/22 Allergies Allergy/AdvReac Type Severity Reaction Status Date / Time No Known Allergies Allergy Verified 11/13/17 14:25 Review of Systems ROS Statement: Those systems with pertinent positive or pertinent negative responses have been documented in the HPI. ROS Other: All systems not noted in ROS Statement are negative. Past Medical History Past Medical History: Eye Disorder Additional Past Medical History / Comment(s): MACULAR DEGENERATION History of Any Multi-Drug Resistant Organisms: None Reported Past Surgical History: Ear Surgery, Tubal Ligation Additional Past Surgical History / Comment(s): CATARACT, Past Anesthesia/Blood Transfusion Reactions: No Reported Reaction Past Psychological History: No Psychological Hx Reported Past Alcohol Use History: None Reported Past Drug Use History: None Reported General Exam Limitations: no limitations (Well-developed, well-nourished, poorly kempt female in no acute distress at rest. Patient is hard of hearing and is not wearing her hearing aids.) General appearance: alert, in no apparent distress Neck exam: Present: normal inspection, full ROM. Absent: tenderness, meningismus, lymphadenopathy Respiratory exam: Present: normal lung sounds bilaterally. Absent: respiratory distress, wheezes, rales, rhonchi, stridor Cardiovascular Exam: Present: regular rate, normal rhythm, normal heart sounds. Absent: systolic murmur, diastolic murmur, rubs, gallop, clicks GI/Abdominal exam: Present: soft, normal bowel sounds. Absent: distended, tenderness, guarding, rebound, rigid Back exam: Present: normal inspection. Absent: paraspinal tenderness, vertebral tenderness Expanded Back exam: Negative Straight Leg Raising: Left, Right Neurological exam: Present: alert, oriented X3, CN II-XII intact Psychiatric exam: Present: flat affect Skin exam: Present: warm, dry, intact, normal color Course Vital Signs 03/07/22 19:34 Temperature 97.8 F Pulse Rate 72 Respiratory 16 Rate Blood Pressure 147/77 O2 Sat by Pulse 94 L Oximetry - Reevaluation(s) Reevaluation #1: 03/07/22 21:30 Upon reassessment, patient reports some improvement in level of discomfort. Discussed results of Xray. Encouraged to continue utilizing walker and to obtain medications as prescribed. Medical Decision Making - Medical Decision Making This is a 81-year-old female with a past medical history of macular degeneration who lives at home independently. Presents to the emergency Department with complaints of low back pain radiating down the right leg. Pain is radicular in nature. Straight leg raises are negative. No red flag symptoms. X-ray is unremarkable. Patient was given [place] and Prednisone with some improvement. She is encouraged to establish care with a PCP. Discussed pain control options. Patient will be discharged home. Return parameters were discussed in detail. Patient verbalizes understanding and agrees with this plan. Attending: Chloe. - Radiology Data Radiology results: report reviewed, image reviewed Interpreted by me: Upon review of x-ray, I see no acute findings. There appear to be age related changes. X-ray of the lumbar spine was obtained. Report was reviewed in its entirety. Impression per Dr. Dey is multilevel spondylitic changes. No fracture seen. Disposition Clinical Impression: Lumbar radiculopathy, right Disposition: HOME SELF-CARE Condition: Stable Instructions (If sedation given, give patient instructions): Lumbar Radiculopathy (ED) Additional Instructions: Maintain mobility with frequent ambulation. Utilize walker. Rest as needed. Take Motrin if needed for pain. You are being prescribed Motrin for discomfort and prednisone for anti- inflammatory properties. It is important to follow up with her primary care for recheck. Return to the emergency department with any new, worsening, or concerning symptoms. Prescriptions: Ibuprofen [Motrin] 600 mg PO Q8HR PRN #20 tab PRN Reason: Pain predniSONE 50 mg PO DAILY #5 tab Is patient prescribed a controlled substance at d/c from ED?: No Referrals: None,Stated [Primary Care Provider] - 1-2 days Kendra Obrien MD [STAFF PHYSICIAN] - 1-2 days Time of Disposition: 21:50
[2022-03-07] MEDS ORDERED: IBUPROFEN 600 MG STARTER PACK 4 TAB BTL PO STA (21:47)
== END 2022-03-07 23:37 | disposition home or self-care (01) ==
LOC: EC 19:26
DX: M54.16 Radiculopathy, lumbar region (principal)
CPT/HCPCS: 72100; 99283; J7512

== ENCOUNTER 2022-09-08 12:24 | Emergency (ER) | payer MEDICARE, OTHER ==
[2022-09-08 12:29] LABS: Glucose,Whole Blood 107 mg/dL (70-110)
[2022-09-08 12:35] VITALS: BP 116/78; PULSE 52; RESP 20
[2022-09-08] MEDS ORDERED: ROCURONIUM 10 MG/ML (5 ML VIAL) IV ONE (12:35)
[2022-09-08] MEDS ORDERED: ASPIRIN 300 MG SUPP RECTAL STA (13:26)
[2022-09-08] MEDS ORDERED: EPINEPHrine 4 MG in DEXTROSE 5% IN WATER 250 ML IV ONE ×2 (13:27)
[2022-09-08 13:30] LABS: INR 1.9 (<1.2); Prothrombin Time 18.5 sec (9.0-12.0)
[2022-09-08] MEDS ORDERED: VASOPRESSIN 60 UNIT in SODIUM CHLORIDE 0.9% 150 ML IV SCH (13:30)
[2022-09-08] MEDS ORDERED: DEXTROSE 5% IN WATER 1,000 ML with SODIUM BICARB (1 MEQ/ML) 150 ML IV SCH (13:30)
[2022-09-08 13:32] LABS: HCT 32.1 % (34.0-46.0); HGB 11.5 gm/dL (11.4-16.0); MCH 30.7 pg (25.0-35.0); MCHC 35.9 g/dL (31.0-37.0); Mean Platelet Volume 8.3; RBC 3.75 m/uL (3.80-5.40); WBC 9.9 k/uL (3.8-10.6)
[2022-09-08 13:34] LABS: MCV 85.5 fL (80.0-100.0)
[2022-09-08 13:52] LABS: Platelet Count 73 k/uL (150-450)
[2022-09-08 13:55] LABS: Lymphocytes # (M) 2.08 k/uL (1.0-4.8); Neutrophils # (M) 7.23 k/uL (1.3-7.7); Neutrophils % (M) 73 %; Nucleated Red Blood Cells 0 /100 WBC (0-0); Total Cells Counted 100
[2022-09-08 13:56] LABS: Crenated RBC Present; Poikilocytosis (M) Present
--- NOTE | 2022-09-08 13:57 | ED ---
General Adult HPI - General Chief complaint: Altered Mental Status Stated complaint: Poss stroke Source: EMS Mode of arrival: EMS - History of Present Illness Initial comments: Dictation was produced using [employer] dictation software. please excuse any grammatical, word or spelling errors. Chief Complaint: 82-year-old female brought to the emergency department for unresponsiveness History of Present Illness: Patient is an 82-year-old male presents to emergency department after being found unresponsive. According to EMS provides history of present illness patient was sitting down. Apparently she was having a meal when she became unresponsive. EMS was there to bring a different patient to the emergency department however staff requested that EMS bring the patient to the ER first. According to EMS patient has stable vital signs. She was not responding to any sort of stimuli. Attempt was made to intubate however she did have an intact gag reflex. She did have a normal blood pressure, normal blood sugar and normal heart rate Unable to obtain secondary to mental status - Related Data Home Medications Medication Instructions Recorded Confirmed Donepezil [Aricept] 10 mg PO HS 08/21/22 08/21/22 QUEtiapine FUMARATE [SEROquel] 25 mg PO HS 08/21/22 08/21/22 Previous Rx's Medication Instructions Recorded Cyanocobalamin [Vitamin B-12] 1,000 mcg PO DAILY tab 07/02/22 Famotidine [Pepcid] 20 mg PO DAILY tab 07/02/22 Melatonin 5 mg PO HS tab 07/02/22 Cefuroxime [Ceftin] 250 mg PO BID 3 Days #6 tab 08/23/22 Fluconazole [Diflucan] 100 mg PO DAILY #3 tab 08/27/22 Ipratropium-Albuterol Nebulize 3 ml INHALATION TID #1 each 08/27/22 [Duoneb 0.5 mg-3 mg/3 ml Soln] Lisinopril-Hctz 10-12.5 mg 1 tab PO BID #1 tab 08/27/22 [Zestoretic 10-12.5] Loratadine-Pseudoeph 5-120 mg 1 each PO Q12HR #10 tab 08/27/22 [Claritin-D 12 Hour] guaiFENesin [Mucinex] 600 mg PO QID tab 08/27/22 predniSONE 10 mg PO DAILY #30 tab 08/27/22 Allergies Allergy/AdvReac Type Severity Reaction Status Date / Time No Known Allergies Allergy Verified 09/08/22 14:29 Review of Systems ROS Statement: Those systems with pertinent positive or pertinent negative responses have been documented in the HPI. ROS Other: All systems not noted in ROS Statement are negative. Past Medical History Past Medical History: Dementia, Eye Disorder Additional Past Medical History / Comment(s): MACULAR DEGENERATION History of Any Multi-Drug Resistant Organisms: None Reported Past Surgical History: Section, Ear Surgery, Tubal Ligation Additional Past Surgical History / Comment(s): CATARACT, Past Anesthesia/Blood Transfusion Reactions: No Reported Reaction Past Psychological History: No Psychological Hx Reported Smoking Status: Never smoker Past Alcohol Use History: None Reported Past Drug Use History: None Reported General Exam - General Exam Comments Initial Comments: PHYSICAL EXAM: General Impression: Obtunded, sonorous respirations, ashen HEENT: Normocephalic atraumatic, extra-ocular movements intact, pupils equal and reactive to light bilaterally, dry mucous membranes Cardiovascular: Thready pulse Chest: Sonorous respirations Abdomen: abdomen soft, , non-distended, no organomegaly Musculoskeletal: , no peripheral edema Neurological: Unresponsive to any stimuli Skin: Ashen Course Vital Signs 09/08/22 12:31 Pulse Rate 52 L Respiratory 20 Rate Blood Pressure 116/78 O2 Sat by Pulse 100 Oximetry - Reevaluation(s) Reevaluation #1: 09/08/22 13:48 Patient received intravenous Tuesday #2. Patient had intact vital signs on initial arrival. She was not protecting her airway. Decision was made to intubate patient. She was intubated with rapid sequence intubation. Patient had stable vitals and after several minutes she became pulseless. She had undergone CPR for prolonged period of time. Patient had defibrillation on multiple occasions for some runs of V. fib and unstable ventricular tachycardia. She continually loss of pulse after short periods of return of spontaneous circulation. She was placed on multiple pressors. Second EKG was performed showing large myocardial infarction with diffuse ST segment elevation and reciprocal changes in high lateral leads. Patient was given rectal aspirin. Case was discussed with on-call cardiology, Dr. Valerio. Patient not a good candidate for the recyclable products sorter in his recommendation was rectal aspirin and heparin. Case was discussed with family. Daughter understands the patient was sent to the emergency department after being unresponsive. Daughter states patient does not have any cardiac history. Clinical state was discussed with daughter. Af ter some phone calls with family it was decided by family to cease resuscitation efforts. Time of was at 143 p.m. 09/08/22 13:53 Reevaluation #2: 09/08/22 14:46Case discussed with medical care manager. Case also discussed with Dr. Rodriguez for signing of the certificate. Medical Decision Making - Medical Decision Making Was pt. sent in by a medical professional or institution (, PA, PRINT SHOP HELPER, urgent ca re, hospital, or prison...) When possible be specific @ -assisted Did you speak to anyone other than the patient for history (EMS, parent, family, police, friend...)? What history was obtained from this source @ -History obtained from EMS. Please see history present illness for further detail Did you review nursing and triage notes (agree or disagree)? Why? @ -I reviewed and agree with nursing and triage notes Were old charts reviewed (outside hosp., previous admission, EMS record, old EKG, old radiological studies, urgent care reports/EKG's, prison records)? Report findings @ -Per charting was reviewed. Patient was just discharged from the hospital on August 27. She was admitted to Dr. Talbot service for COPD and hypoxic respiratory failure. Differential Diagnosis (chest pain, altered mental status, abdominal pain women, abdominal pain men, vaginal bleeding, musculoskeletal, weakness, fever, dyspnea, syncope, headache, dizziness, GI bleed, back pain, seizure, CVA, palpatations, mental health)? @ -Differential Altered Mental Status: Hypoglycemia, DKA, hypercapnia, ETOH, overdose, CO poisoning, trauma, myxedema coma, HTN encephalopathy, infection, encephalitis, psychosis, intercranial hemo rrhage, hepatic encephalopathy, meningitis, CVA, this is not meant to be an all- inclusive list EKG interpreted by me (3pts min.). @ -Initial EKG shows A. fib. There is significant artifact in one, 3, aVL and V4 making interpretation difficult however didn't appear to be ST depressions in lateral leads. Repeat EKG performed at [address] segment elevation [place] X-rays interpreted by me (1pt min.). @ -None done CT interpreted by me (1pt min.). @ -None done U/S interpreted by me (1pt. min.). @ -None done What testing was considered but not performed or refused? (CT, X-rays, U/S, labs)? Why? @ -None What meds were considered but not given or refused? Why? @ -None Did you discuss the management of the patient with other professionals (prof grande i.e. , PA, PR[employer] SH[employer] HELPER, lab, RT, psych nurse, elementary school social worker, contract runner, teacher, learning officer, shoe caser)? Give summary @ -Discussed with cardiology as mentioned in clinical course Was smoking cessation discussed for >3mins.? @ -No Was critical care preformed (if so, how long)? @ -yes 73 minutes Were there social determinants of health that impacted care today? How? (Homelessness, low income, unemployed, alcoholism, drug addiction, transportation, low edu. Level, literacy, decrease access to med. care, half-way, rehab)? @ -No Was there de-escalation of care discussed even if they declined (Discuss DNR or withdrawal of care, Hospice)? DNR status @ -Initially presented to the ER as a full code. During resuscitation efforts resuscitation efforts were discontinued after discussion with family What co-morbidities impacted this encounter? (DM, HTN, Smoking, COPD, CAD, Cancer, CVA, ARF, Chemo, Hep., AIDS, mental health diagnosis, sleep apnea, morbid obesity)? @ -COPD, dementia Was patient admitted / discharged? Hospital course, mention meds given and route, prescriptions, significant lab abnormalities, going to OR and other pertinent info. @ -10-year-old female presents emergency confirmed from prison for unresponsiveness. Patient having sonorous respiration in clinical distress. Patient had multiple episodes of cardiac arrest and return of spontaneous circulation. Ultimately resuscitation efforts were discontinued after dis cussion with family. Cause of is likely secondary to cardiac arrest from ST segment elevation NH. Undiagnosed new problem with uncertain prognosis? @ -No Drug Therapy requiring intensive monitoring for toxicity (Heparin, Nitro, Insulin, Cardizem)? @ -No Were any procedures done? @ -No Diagnosis/symptom? Acute, or Chronic, or Acute on Chronic? Uncomplicated (without systemic symptoms) or Complicated (systemic symptoms)? @ -1. Cardiac arrest Side effects of treatment? @ -No Exacerbation, Progression, or Severe Exacerbation? @ -No Poses a threat to life or bodily function? How? (Chest pain, USA, NH, pneumonia, PE, COPD, DKA, ARF, appy, cholecystitis, CVA, Diverticulitis, Homicidal, Suicidal, threat to staff... and all critical care pts) @ -yes - Lab Data Result diagrams: 09/08/22 13:10 Lab Results 09/08/22 09/08/22 09/08/22 Range/Units 12:27 13:10 13:10 WBC 9.9 (3.8-10.6) k/uL RBC 3.75 L (3.80-5.40) m/uL Hgb 11.5 (11.4-16.0) gm/dL Hct 32.1 L (34.0-46.0) % MCV 85.5 D (80.0-100.0) fL MCH 30.7 (25.0-35.0) pg MCHC 35.9 (31.0-37.0) g/dL RDW 13.0 (11.5-15.5) % Plt Count 73 L (150-450) k/uL MPV 8.3 Neutrophils % (Manual) 73 % Lymphocytes % (Manual) 21 % Monocytes % (Manual) 4 % Eosinophils % (Manual) 2 % Neutrophils # (Manual) 7.23 (1.3-7.7) k/uL Lymphocytes # (Manual) 2.08 (1.0-4.8) k/uL Monocytes # (Manual) 0.40 (0-1.0) k/uL Eosinophils # (Manual) 0.20 (0-0.7) k/uL Nucleated RBCs 0 (0-0) /100 WBC Manual Slide Review Performed Poikilocytosis (manual Present Crenated Cell Present PT (9.0-12.0) sec INR (<1.2) APTT (22.0-30.0) sec POC Glucose (mg/dL) 107 (70-110) mg/dL POC Glu Cnc Machine Setter ID Deniz Abdi Plasma Lactic Acid Gerald 3.6 H* (0.7-2.0) mmol/L Magnesium (1.6-2.3) mg/dL Troponin I (0.000-0.034) ng/mL 09/08/22 09/08/22 09/08/22 Range/Units 13:10 13:10 13:11 WBC (3.8-10.6) k/uL RBC (3.80-5.40) m/uL Hgb (11.4-16.0) gm/dL Hct (34.0-46.0) % MCV (80.0-100.0) fL MCH (25.0-35.0) pg MCHC (31.0-37.0) g/dL RDW (11.5-15.5) % Plt Count (150-450) k/uL MPV Neutrophils % (Manual) % Lymphocytes % (Manual) % Monocytes % (Manual) % Eosinophils % (Manual) % Neutrophils # (Manual) (1.3-7.7) k/uL Lymphocytes # (Manual) (1.0-4.8) k/uL Monocytes # (Manual) (0-1.0) k/uL Eosinophils # (Manual) (0-0.7) k/uL Nucleated RBCs (0-0) /100 WBC Manual Slide Review Poikilocytosis (manual Crenated Cell PT 18.5 H (9.0-12.0) sec INR 1.9 H (<1.2) APTT 68.0 H (22.0-30.0) sec POC Glucose (mg/dL) (70-110) mg/dL POC Glu Cnc Machine Setter ID Plasma Lactic Acid Gerald (0.7-2.0) mmol/L Magnesium 1.6 (1.6-2.3) mg/dL Troponin I <0.012 (0.000-0.034) ng/mL Disposition Clinical Impression: Cardiac arrest Disposition: Condition: Undetermined Referrals: Yared Talbot MD [Primary Care Provider] - 1-2 days Preliminary Cause of : cardiac arrest
[2022-09-08] MEDS ORDERED: ETOMIDATE 2 MG/ML 10 ML VIAL IVP STA (14:08)
== END 2022-09-08 15:43 | disposition expired ==
LOC: EC 12:24
DX: I46.9 Cardiac arrest, cause unspecified (principal)
CPT/HCPCS: 36415; 92950; 83605; 83735; 84484; 85025; 85610; 85730; 99285; 96365; 96375 ×3; J0171 ×2; 93005